=== PATIENT | female | born 1985 | race African-American/Black ===

== ENCOUNTER 2017-07-26 22:05 | Emergency (ER) | payer OTHER ==
[~2017-07-26] VITALS: Ht 160 cm; Wt 122.0 kg
[~2017-07-26 22:05] MED LIST: GLIP2.5T6 PO; LISI-360 PO; LOVA20TA PO; OMEP20TA PO; ONDA1TAB16 PO; TRAM50 PO; ZYRT10TA12 PO
[2017-07-26 22:12] VITALS: BP 146/89; PULSE 98; RESP 16; TEMP 97.9; O2SAT 98
[2017-07-26] MEDS ORDERED: ONDANSETRON ODT 4 MG TAB PO ONE ×2 (22:30)
[2017-07-26 22:31] VITALS: BP 146/89; PULSE 98; RESP 16; TEMP 97.9; O2SAT 98
[2017-07-26] MEDS ORDERED: ZOFR4TAB3 SL ×2 (22:33)
--- NOTE | 2017-07-26 22:34 | PD ---
HPI Chief Complaint: vomiting and diarrhea Time Seen by Provider: 22:16 Travel History International Travel<30 days: No Contact w/Intl Traveler<30days: No Traveled to known affect area: No History of Present Illness HPI The patient is a 31-year-old [place] female who presents to the emergency department for nausea, vomiting, diarrhea. The patient states her symptoms started approximately noon today with nausea that was followed by diarrhea. The patient estimates 10-15 episodes of loose, watery, brown diarrhea without any visible blood. She also notes nausea with several episodes of vomiting. 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 She denies any sick contacts at home, but does note sick contacts at work. She denies any recent international travel last 3 months. She has taken Zithromax in the last 3 months but denies any history of C. difficile. She denies any fever, chills, or sweats. She does complain of mild epigastric abdominal pain after vomiting but denies any lower abdominal pain. She denies any associated dysuria, frequency, or urgency. Symptoms are mild to moderate, possibly exacerbated after being exposed to symptoms, and there are no current alleviating factors. PFSH Past Medical History Hx Anticoagulant Therapy: No High Cholesterol: Yes Diabetes: Yes Diminished Hearing: No Hypertension: Yes : 0 Para: 0 Miscarriage: 0 : 0 Past Surgical History Oral Surgery: Yes Tonsillectomy: Yes Social History Alcohol Use: No Tobacco Use: No Substance Use: No Allergies-Medications (Allergen,Severity, Reaction): Coded Allergies: Sulfa (Sulfonamide Antibiotics) (Unverified Allergy, Severe, SWELLS UP, ) petrolatum,white (Unverified Allergy, Severe, Hives, 05/16/17) sulfamethoxazole (Unverified Allergy, Severe, SWELLS UP, 05/16/17) trimethoprim (Unverified Allergy, Severe, SWELLS UP, 05/16/17) Reported Meds & Prescriptions Reported Meds & Active Scripts Active Zofran Tab (Ondansetron HCl) 4 Mg Tab 4 Mg PO Q6 PRN Ultram (Tramadol HCl) 50 Mg Tab 50 Mg PO Q6 PRN Omeprazole 20 mg (Omeprazole) 20 Mg Tab 20 Mg PO DAILY 28 Days Reported Lisinopril 10 mg (Lisinopril) 10 Mg Tab 1 Tab PO DAILY Lovastatin 20 Mg Tab Unknown Dose PO HS Zyrtec (Cetirizine HCl) 10 Mg Tab 10 Mg PO DAILY Glipizide Er (Glipizide) 2.5 Mg Tab 2.5 Mg PO BID Review of Systems Except as stated in HPI: all other systems reviewed are Neg General / Constitutional: No: Fever Cardiovascular: No: Chest Pain or Discomfort Respiratory: No: Shortness of Breath Gastrointestinal: Positive: Nausea, Vomiting, Diarrhea, Abdominal Pain ( epigastric abdominal pain after vomiting) Genitourinary: No: Dysuria Musculoskeletal: No: Myalgias Physical Exam Narrative GENERAL: Awake, alert, very pleasant 31-year-old female who appears her stated age and is in no acute respiratory distress. SKIN: Focused skin assessment warm/dry. HEAD: Atraumatic. Normocephalic. EYES: Patient is wearing glasses, no icterus noted. ENT: No nasal bleeding or discharge. Mucous membranes pink and moist. NECK: Trachea midline. No JVD. CARDIOVASCULAR: Regular rate and rhythm. No murmur appreciated. RESPIRATORY: No accessory muscle use. Clear to auscultation. Breath sounds equal bilaterally. GASTROINTESTINAL: Abdomen soft, mild epigastric tenderness, no rebound tennis, guarding, rigidity. MUSCULOSKELETAL: No obvious deformities. No clubbing. No cyanosis. No edema. NEUROLOGICAL: Awake and alert. No obvious cranial nerve deficits. Motor grossly within normal limits. Normal speech. PSYCHIATRIC: Appropriate mood and affect; insight and judgment normal. Data Data Last Documented VS Vital Signs Date Time Temp Pulse Resp B/P (MAP) Pulse Ox O2 Delivery O2 Flow Rate FiO2 07/26/17 22:12 97.9 98 16 146/89 (108) 98 Orders Orders Ondansetron Odt (Zofran Odt) (07/26/17 22:30) [facility] Medical Decision Making Medical Screen Exam Complete: Yes Emergency Medical Condition: Yes Medical Record Reviewed: Yes Differential Diagnosis Differential diagnosis includes gastroenteritis, viral syndrome, influenza, food poisoning, gastritis, enteritis, colitis, C. difficile. Narrative Course The patient's history and physical examination are consistent with most likely viral syndrome versus food poisoning. The patient has been exposed to several children and the last week with similar symptoms. The patient's vitals are unremarkable. Exam was unremarkable. The patient was offered Zofran 8 ODT versus IV placement with IV fluids and Zofran. The patient chose conservative therapy, therefore, was administered Zofran 4 mg ODT. The patient then had a by mouth challenge. Diagnosis Primary Impression: Gastroenteritis Additional Instructions: Zofran as directed. Clear liquid diet and advance as tolerated. Plenty fluids to stay hydrated. [id number] Imodium as needed. Work excuse for 2 days. Return if symptoms worsen or progress. Med/Other Pt SpecificInfo: Prescription(s) given Scripts Ondansetron Odt (Zofran Odt) 4 Mg Tab 4 MG SL Q6HR Y for Nausea/Vomiting, #10 TAB 0 Refills Prov: Michael Wick MD 07/26/17 Disposition: 01 DISCHARGE HOME Condition: Stable Michael Wick MD Jul 26, 2017 22:34
[2017-07-26] MEDS ORDERED: LISI40TA PO ×2 (22:40)
[2017-07-26] MEDS ORDERED: DAPA1TAB3 PO ×2 (22:40)
[2017-07-26] MEDS ORDERED: GLYB5TAB3 PO ×2 (22:40)
[2017-07-26] MEDS ORDERED: PIOG15TA5 PO ×2 (22:40)
[2017-07-26] MEDS ORDERED: ROSU1TAB4 PO ×2 (22:40)
[2017-07-26 23:30] VITALS: BP 136/71
== END 2017-07-26 23:30 | disposition home or self-care (01) ==
LOC: PHED 22:05
DX: K52.9 Noninfective gastroenteritis and colitis, unspecified (principal); E11.9 Type 2 diabetes mellitus without complications; I10 Essential (primary) hypertension
CPT/HCPCS: 99283